=== PATIENT | male | born 1975 | race Caucasian/White ===

== ENCOUNTER 2018-10-17 04:19 | Emergency (ER) | payer MEDICAID, OTHER ==
[~2018-10-17] VITALS: Ht 175.3 cm; Wt 87.0 kg
[2018-10-17 05:39] VITALS: BP 130/76
== END 2018-10-17 05:41 | disposition home or self-care (01) ==
LOC: ED 05:37
DX: S16.1XXA Strain of muscle, fascia and tendon at neck level, initial encounter (principal); S46.911A Strain of unspecified muscle, fascia and tendon at shoulder and upper arm level, right arm, initial encounter; F17.210 Nicotine dependence, cigarettes, uncomplicated; X58.XXXA Exposure to other specified factors, initial encounter; Y93.89 Activity, other specified; Y92.89 Other specified places as the place of occurrence of the external cause; Y99.8 Other external cause status
CPT/HCPCS: 72050; 99283

== ENCOUNTER 2019-04-09 10:35 | Emergency (ER) | payer OTHER ==
[~2019-04-09] VITALS: Ht 175.3 cm; Wt 82.6 kg
[~2019-04-09 10:35] MED LIST: CYCL-259 PO; DEXA4TAB PO; DIAZ5TAB PO; HYDR-3237 PO; TRAM50TA2 PO; [UNRECOGNIZED DRUG - OTHER] PO
[2019-04-09 10:38] VITALS: BP 153/88
[2019-04-09] MEDS ORDERED: ONDANSETRON 2MG/ML, 2ML IVPush ONE (11:00)
[2019-04-09] MEDS ORDERED: SODIUM CHLORIDE 0.9% 1,000ML IVBOLUS ONE (11:00)
[2019-04-09] MEDS ORDERED: ONDANSETRON 2MG/ML, 2ML ONE (11:08)
--- NOTE | 2019-04-09 11:28 | NUR ---
PT HAS CO OF N/V FOR 4 DAYS. PT STATES HE IS UNABLE TO KEEP ANY FLUIDS OR FOOD DOWN. PT NOT ACTIVELY VOMITING, NO DISTRESS NOTED. NO ABDOMINAL PAIN. IV ESTABLISHED, FLUIDS INFUSING. MEDICATED W ZOFRAN
[2019-04-09 11:30] LABS: BASOPHILS # (AUTO) 0.05 x10^3/uL (0-0.1); BASOPHILS % (AUTO) 1 % (0-1); EOSINOPHILS % (AUTO) 0 % (1-7); LYMPHOCYTES # (AUTO) 1.14 x10^3/uL (1-3.4); LYMPHOCYTES % (AUTO) 12 % (22-44); MD NO; MEAN CORPUSCULAR HEMOGLOBIN 30.6 pg (27.5-34.5); MEAN CORPUSCULAR HGB CONC 33.9 g/dL (33.2-36.2); MEAN CORPUSCULAR VOLUME 90.4 fL (81-97); MEAN PLATELET VOLUME 8.9 fL (7.4-10.4); MONOCYTES # (AUTO) 0.98 x10^3/uL (0.2-0.8); MONOCYTES % (AUTO) 10 % (2-9); NEUTROPHILS # (AUTO) 7.23 x10^3/uL (1.8-6.8); NEUTROPHILS % (AUTO) 77 % (42-75); PLATELET COUNT 211 x10^3/uL (130-400); RED BLOOD COUNT 5.78 x10^6/uL (4.38-5.82); RED CELL DISTRIBUTION WIDTH 13.4 % (9.4-14.8)
[2019-04-09 11:43] LABS: ALANINE AMINOTRANSFERASE 30 U/L (12-78); ALBUMIN 4.3 g/dL (3.4-5.0); ANION GAP 13 mmol/L (5-15); CALCIUM 8.8 mg/dL (8.5-10.1); CHLORIDE 98 mmol/L (98-107); CREATININE 1.05 mg/dL (0.7-1.3)
[2019-04-09 11:43] LABS: RAPID INFLUENZA A Negative (Negative); RAPID INFLUENZA B Negative (Negative)
[2019-04-09 11:46] LABS: ALKALINE PHOSPHATASE 51 U/L (45-117); BILIRUBIN,TOTAL 0.6 mg/dL (0.2-1.0); TOTAL PROTEIN 8.9 g/dL (6.4-8.2)
[2019-04-09] MEDS ORDERED: POTASSIUM CHLORIDE 20 MEQ TAB.ER.PRT ONE (12:25)
[2019-04-09] MEDS ORDERED: POTASSIUM CHLORIDE 10% 40 MEQ/30 ML UDC PO ONE (12:30)
[2019-04-09] MEDS ORDERED: POTASSIUM CHLORIDE 20 MEQ TAB.ER.PRT PO ONE (12:30)
--- NOTE | 2019-04-09 13:07 | NUR ---
Patient/Caregiver given discharge instructions and they have confirmed that they understand the instructions. Patient ambulatory with steady gait.
== END 2019-04-09 13:09 | disposition home or self-care (01) ==
LOC: ED 10:46
DX: R19.7 Diarrhea, unspecified (principal); R11.2 Nausea with vomiting, unspecified; E87.6 Hypokalemia; E87.1 Hypo-osmolality and hyponatremia; J40 Bronchitis, not specified as acute or chronic; Z90.89 Acquired absence of other organs
CPT/HCPCS: 36415; 71045; 80053; 83690; 85025; 87400; 96361; 96374; 99284; J2405; J7030; 99406

== ENCOUNTER 2020-08-15 11:09 | Observation (INO) | payer OTHER ==
[~2020-08-15] VITALS: Ht 175.3 cm; Wt 94.0 kg
[~2020-08-15 11:09] MED LIST changes: -CYCL-259 PO; +CYCL10TA2 PO
--- NOTE | 2020-08-15 11:23 | NUR ---
BIB [facility] W CO SUDDEN ONSET 10/30 L SIDED "SQUEEZING" CHEST PAIN THAT RADIATES TO L ARM; +ASSOCIATED NAUSEA. GIVEN ASA, FENTANYL, AND NITRO GENERAL TELLER W LITTLE EFFECT, PAIN 08/30. DENIES PERTINENT MEDICAL HISTORY OR FAMILY HISTORY. BP/SPO2/ECG MONITORING IN PLACE. NSR ON MONITOR. EKG COMPLETED UPON ARRIVAL, SINUS RHYTHM.
[2020-08-15] MEDS ORDERED: SODIUM CHLORIDE FLUSH 10ML SYR IVF ONE (11:30)
[2020-08-15] MEDS ORDERED: KETOROLAC 30 MG/1 ML IVPush ONE (11:30)
[2020-08-15] MEDS ORDERED: KETOROLAC 30 MG/1 ML ONE (11:36)
--- NOTE | 2020-08-15 11:40 | NUR ---
PT MEDICATED PER EMAR FOR 08/30 PAIN
[2020-08-15 11:54] LABS: BASOPHILS % (AUTO) 1 % (0-1); EOSINOPHILS % (AUTO) 1 % (1-7); LYMPHOCYTES % (AUTO) 23 % (22-44); MEAN CORPUSCULAR HGB CONC 34.7 g/dL (33.2-36.2); MEAN PLATELET VOLUME 7.9 fL (7.4-10.4); MONOCYTES % (AUTO) 7 % (2-9); NEUTROPHILS % (AUTO) 68 % (42-75); PLATELET COUNT 340 x10^3/uL (130-400); RED BLOOD COUNT 5.02 x10^6/uL (4.38-5.82); RED CELL DISTRIBUTION WIDTH 13.6 % (9.4-14.8)
[2020-08-15 11:55] LABS: MD NO
[2020-08-15 12:02] LABS: ALBUMIN 3.8 g/dL (3.4-5.0); ANION GAP 5 mmol/L (5-15); CALCIUM 8.7 mg/dL (8.5-10.1); CHLORIDE 110 mmol/L (98-107)
[2020-08-15 12:07] LABS: ALANINE AMINOTRANSFERASE 25 U/L (12-78); ALKALINE PHOSPHATASE 50 U/L (45-117); BILIRUBIN,TOTAL 0.3 mg/dL (0.2-1.0); CREATININE 0.79 mg/dL (0.7-1.3); TOTAL PROTEIN 7.5 g/dL (6.4-8.2); TROPONIN I < 0.015 ng/mL (0.000-0.045)
--- NOTE | 2020-08-15 14:12 | NUR ---
REPORT TO LILLIAN TAN ON TELE. PT PREPARED FOR TRANSPORT
[2020-08-15] MEDS ORDERED: morphine SULFATE 10 MG/ML, 1ML IV PRN (14:30)
[2020-08-15] MEDS ORDERED: ACETAMINOPHEN 325 MG TABLET PO PRN (14:30)
[2020-08-15] MEDS ORDERED: ENOXAPARIN 40 MG/0.4 ML SQ SCH (14:30)
[2020-08-15] MEDS ORDERED: ZOLPIDEM 5MG TABLET PO PRN (14:30)
[2020-08-15] MEDS ORDERED: NITROGLYCERIN 0.4 MG/SPRAY SL PRN (14:30)
[2020-08-15] MEDS ORDERED: ONDANSETRON 2MG/ML, 2ML IV PRN (14:30)
[2020-08-15] MEDS ORDERED: HYDROcodone/APAP 5/325 TABLET PO PRN (14:30)
[2020-08-15 14:32] VITALS: BP 126/84
[2020-08-15 15:05] LABS: CHOLESTEROL, TOTAL 163 mg/dL (140-239); TRIGLYCERIDES 145 mg/dL (50-200); VLDL CHOLESTEROL 29 mg/dL (0-25)
[2020-08-15 15:07] LABS: CHOL/HDL RATIO 4.8; HDL CHOLESTEROL (DIRECT) 34 mg/dL (40-60)
[2020-08-15 15:08] LABS: HDL CHOL % 21 % (26-37); LDL CHOLESTEROL,CALCULATED 100 mg/dL (54-169); LDL/HDL RATIO 2.9 (0.5-3.0); TROPONIN I < 0.015 ng/mL (0.000-0.045)
[2020-08-15] MEDS ORDERED: NICOTINE 21 MG/24 HR PATCH.TD24 TD ONE (18:30)
[2020-08-15] MEDS: SODIUM CHLORIDE FLUSH 10ML SYR IVF SCH (20:15)
[2020-08-15 20:17] VITALS: BP 137/83
[2020-08-15 20:54] LABS: TROPONIN I < 0.015 ng/mL (0.000-0.045)
[2020-08-16 00:02] VITALS: BP 132/81
[2020-08-16 04:57] LABS: ANION GAP 4 mmol/L (5-15); CALCIUM 8.3 mg/dL (8.5-10.1); CHLORIDE 110 mmol/L (98-107); CREATININE 0.83 mg/dL (0.7-1.3)
[2020-08-16] MEDS: SODIUM CHLORIDE FLUSH 10ML SYR IVF SCH (07:40)
[2020-08-16 09:40] VITALS: BP 118/70
[2020-08-16] MEDS ORDERED: NITR0.4T28 SL (10:42)
[2020-08-16] MEDS ORDERED: NICO-587 TD (11:36)
== END 2020-08-16 12:48 | disposition home or self-care (01) ==
LOC: ED 12:27 → EDIP 13:11 → INTOOBSV 13:11 → 5SO 14:14 → DCLOUNGE 08-16 12:42 → 4WST 08-16 12:48
PROVIDERS: ADMIT Hospitalist; ATTEND Hospitalist
DX: R07.89 Other chest pain (principal); M54.12 Radiculopathy, cervical region; E66.9 Obesity, unspecified; F17.210 Nicotine dependence, cigarettes, uncomplicated; Z68.30 Body mass index [BMI] 30.0-30.9, adult; Z79.899 Other long term (current) drug therapy
CPT/HCPCS: 36415; 71045; 80048; 80053; 80061; 83735; 84100; 84484; 85025; 85379; 93005; 93017; 96374; 99285; G0378; J1885